=== PATIENT | male | born 1935 | race Caucasian/White ===

== ENCOUNTER 2018-07-02 11:39 | Emergency (ER) | payer MEDICARE, BC ==
[2018-07-02] MEDS: BUPIVACAINE 0.25% (MPF) 30 ML INJ INJ (12:49)
[2018-07-02] MEDS: BUPIVACAINE 0.25% (MPF) 10 ML 10 ML VIAL INJ (12:49)
[2018-07-02] MEDS: traMADol 50 MG TAB PO (12:59)
[2018-07-02] MEDS: CEPHALEXIN 500 MG CAP PO (12:59)
[2018-07-02] MEDS: DIPHTH/TET/ACEL PERTUSS (ADULT) 0.5 ML VIAL IM* (13:00)
== END 2018-07-02 13:28 | disposition home or self-care (01) ==
LOC: FTE 11:39
DX: S62.637B Displaced fracture of distal phalanx of left little finger, initial encounter for open fracture (principal); W23.0XXA Caught, crushed, jammed, or pinched between moving objects, initial encounter; Y92.810 Car as the place of occurrence of the external cause; Z23 Encounter for immunization
CPT/HCPCS: 12001; 73140; 90471; 90715; 99283-25